=== PATIENT | male | born 1945 | race Caucasian/White ===

== ENCOUNTER 2020-09-29 12:09 | Outpatient (CLI) | payer MEDICARE | END 2020-09-29 12:10 | disposition home or self-care (01) | LOC: CSHRAD 12:09 | PROVIDERS: ATTEND Family Medicine | DX: M54.5 Low back pain (principal); S32.020A Wedge compression fracture of second lumbar vertebra, initial encounter for closed fracture | CPT/HCPCS: 72100 ==

== ENCOUNTER 2021-06-22 14:08 | Outpatient (CLI) | payer MEDICARE | END 2021-06-22 14:09 | disposition home or self-care (01) | LOC: CSHMRI 14:08 | PROVIDERS: ATTEND Family Medicine | DX: S32.020G Wedge compression fracture of second lumbar vertebra, subsequent encounter for fracture with delayed healing (principal); M48.061 Spinal stenosis, lumbar region without neurogenic claudication; M47.816 Spondylosis without myelopathy or radiculopathy, lumbar region; S32.010D Wedge compression fracture of first lumbar vertebra, subsequent encounter for fracture with routine healing | CPT/HCPCS: 72100; 72148 ==

== ENCOUNTER 2021-12-07 11:11 | Outpatient (CLI) | payer MEDICARE | END 2021-12-07 11:12 | disposition home or self-care (01) | LOC: CSHRAD 11:11 | PROVIDERS: ATTEND Surgery | DX: M25.551 Pain in right hip (principal) ==

== ENCOUNTER 2022-01-08 09:34 | Outpatient (CLI) | payer MEDICARE ==
[~2022-01-08 09:34] MED LIST: Magnevist 469MG/ML 20 ML VIAL ONE
== END 2022-01-08 09:35 | disposition home or self-care (01) ==
LOC: CSHMRI 09:34
PROVIDERS: ATTEND Family Medicine
DX: Z86.73 Personal history of transient ischemic attack (TIA), and cerebral infarction without residual deficits (principal); Z98.890 Other specified postprocedural states
CPT/HCPCS: 70553

== ENCOUNTER 2022-08-09 14:38 | Outpatient (CLI) | payer MEDICARE | END 2022-08-09 14:39 | disposition home or self-care (01) | LOC: CSHRAD 14:38 | PROVIDERS: ATTEND Family Medicine | DX: M25.512 Pain in left shoulder (principal) ==

== ENCOUNTER 2023-05-16 09:31 | Outpatient (CLI) | payer MEDICARE | END 2023-05-16 09:32 | disposition home or self-care (01) | LOC: CSHRAD 09:31 | PROVIDERS: ATTEND Physician Assistant Medical | DX: K52.9 Noninfective gastroenteritis and colitis, unspecified (principal); G20.A1 Parkinson's disease without dyskinesia, without mention of fluctuations; R76.12 Nonspecific reaction to cell mediated immunity measurement of gamma interferon antigen response without active tuberculosis | CPT/HCPCS: 71046 ==

== ENCOUNTER 2023-06-20 08:43 | Outpatient (CLI) | payer MEDICARE | END 2023-06-20 08:44 | disposition home or self-care (01) | LOC: CSHWCC 08:43 | PROVIDERS: ATTEND Preventive Medicine Undersea and Hyperbaric Medicine | DX: L89.153 Pressure ulcer of sacral region, stage 3 (principal) | CPT/HCPCS: 11042 ==

== ENCOUNTER 2023-07-04 15:50 | Outpatient (CLI) | payer MEDICARE | END 2023-07-04 15:51 | disposition home or self-care (01) | LOC: CSHWCC 15:50 | PROVIDERS: ATTEND Physician Assistant | DX: L89.153 Pressure ulcer of sacral region, stage 3 (principal) | CPT/HCPCS: 99213; G0463 ==

== ENCOUNTER 2023-07-17 10:43 | Outpatient (CLI) | payer MEDICARE | END 2023-07-17 10:44 | disposition home or self-care (01) | LOC: CSHWCC 10:43 | PROVIDERS: ATTEND Nurse Practitioner Family | DX: L89.153 Pressure ulcer of sacral region, stage 3 (principal) | CPT/HCPCS: 87070; 87077; 87186; 87205; 97597; G0463; 99213 ==

== ENCOUNTER 2023-07-24 14:50 | Outpatient (CLI) | payer MEDICARE | END 2023-07-24 14:51 | disposition home or self-care (01) | LOC: CSHWCC 14:50 | PROVIDERS: ATTEND Nurse Practitioner Family | DX: L89.153 Pressure ulcer of sacral region, stage 3 (principal) | CPT/HCPCS: 99212; G0463 ==

== ENCOUNTER 2023-11-28 11:30 | Outpatient (CLI) | payer MEDICARE | END 2023-11-28 11:31 | disposition home or self-care (01) | LOC: CSHWCC 11:30 | PROVIDERS: ATTEND Preventive Medicine Undersea and Hyperbaric Medicine | DX: L89.893 Pressure ulcer of other site, stage 3 (principal) | CPT/HCPCS: 87070; 87077; 87186; 87205; G0463; 99213 ==

== ENCOUNTER 2023-12-05 11:33 | Outpatient (CLI) | payer MEDICARE | END 2023-12-05 11:34 | disposition home or self-care (01) | LOC: CSHWCC 11:33 | PROVIDERS: ATTEND Nurse Practitioner Family | DX: L89.893 Pressure ulcer of other site, stage 3 (principal) | CPT/HCPCS: 97597 ==

== ENCOUNTER 2023-12-11 12:20 | Outpatient (CLI) | payer MEDICARE | END 2023-12-11 12:21 | disposition home or self-care (01) | LOC: CSHWCC 12:20 | PROVIDERS: ATTEND Nurse Practitioner Family | DX: L89.893 Pressure ulcer of other site, stage 3 (principal); C44.42 Squamous cell carcinoma of skin of scalp and neck; G20.C Parkinsonism, unspecified | CPT/HCPCS: 97597 ==

== ENCOUNTER 2023-12-18 10:51 | Outpatient (CLI) | payer MEDICARE | END 2023-12-18 10:52 | disposition home or self-care (01) | LOC: CSHWCC 10:51 | PROVIDERS: ATTEND Nurse Practitioner Family | DX: L89.893 Pressure ulcer of other site, stage 3 (principal); G20.C Parkinsonism, unspecified; C44.42 Squamous cell carcinoma of skin of scalp and neck | CPT/HCPCS: 97597 ==

== ENCOUNTER 2023-12-25 09:45 | Outpatient (CLI) | payer MEDICARE | END 2023-12-25 09:46 | disposition home or self-care (01) | LOC: CSHWCC 09:45 | PROVIDERS: ATTEND Nurse Practitioner Family | DX: L89.890 Pressure ulcer of other site, unstageable (principal); C44.42 Squamous cell carcinoma of skin of scalp and neck; G20.C Parkinsonism, unspecified | CPT/HCPCS: 97597 ==